=== PATIENT | female | born 1945 | race African-American/Black ===

== ENCOUNTER 2023-12-28 16:00 | Emergency (ER) | payer MEDICARE, OTHER ==
[~2023-12-28] VITALS: Ht 165.1 cm; Wt 65.0 kg
[~2023-12-28 16:00] MED LIST: AMLO1TAB23 PO
[2023-12-28 18:09] LABS: Basophils # (auto) 0.1 10 ^3/uL (0-0.2); Basophils % (auto) 1.4 % (0.0-2.0); Eosinophils # (auto) 0.1 10 ^3/uL (0-0.8); Eosinophils % (auto) 2.3 % (0.0-7.0); Hematocrit 41.8 % (36.0-46.0); Hemoglobin 13.9 g/dL (12.2-16.2); Lymphocytes # (auto) 1.9 10 ^3/uL (0.4-5.4); Lymphocytes % (auto) 30.3 % (10.0-50.0); Mean Corpuscular Hemoglobin 28.3 pg (28.0-32.0); Mean Corpuscular Hgb Conc. 33.4 g/dL (32.0-36.0); Mean Corpuscular Volume 84.7 fL (80.0-100.0); Monocytes # (auto) 0.4 10 ^3/uL (0-1.3); Monocytes % (auto) 6.1 % (0.0-12.0); Neutrophils # (auto) 3.7 10 ^3/uL (1.6-8.6); Neutrophils % (auto) 59.9 % (37.0-80.0); Nucleated Red Blood Cells % 0.2 %; Platelet Count (auto) 237 10^3/uL (140-450); Red Blood Cells 4.93 10^6/uL (4.0-5.20); Red Cell Distribution Width 14.3 % (11.8-14.3); White Blood Cell 6.1 10^3/uL (4.4-10.8)
[2023-12-28 18:23] LABS: INR 1.05 (0.9-1.15); Partial Thromboplastin Time 25.9 SEC (24.5-34.5); Prothrombin Time 11.1 sec (9.3-11.8)
[2023-12-28 18:58] LABS: Alanine Aminotransferase 12 U/L (7-40); Albumin 4.6 g/dL (3.2-4.8); Alkaline Phosphatase 82 U/L (46-116); Anion Gap 7 (5-15); Aspartate Aminotransferase 15 U/L (13-40); BUN/Creatinine Ratio 14.3 (10.0-20.0); Bilirubin, Total 0.5 mg/dL (0.2-1.0); Blood Urea Nitrogen 15 mg/dL (9-23); Calcium 11.3 mg/dL (8.7-10.4); Carbon Dioxide 30 mmol/L (20-31); Chloride 107 mmol/L (98-107); Glucose 108 mg/dL (74-106); Sodium 144 mmol/L (136-145); Total Protein 7.4 g/dL (5.7-8.2)
[2023-12-28] MEDS: NITROGLYCERIN 0.4 MG SL TAB SL ONE (20:27)
[2023-12-28 20:29] VITALS: PULSE 74; RESP 16; O2SAT 95
[2023-12-28 20:38] VITALS: BP 116/55; PULSE 99; RESP 16; O2SAT 96
[2023-12-28] MEDS: HYDROcodone-ACET 5/325MG TAB ONE (20:42)
[2023-12-28] MEDS: HYDROcodone-ACET 5/325MG TAB PO ONE (20:45)
[2023-12-29] MEDS ORDERED: HYDR25TA5 PO (17:33)
[2023-12-29] MEDS ORDERED: LISI10TA34 PO (17:33)
== END 2023-12-28 21:43 | disposition home or self-care (01) ==
LOC: ER 16:00
DX: I10 Essential (primary) hypertension (principal); E78.5 Hyperlipidemia, unspecified; F03.90 Unspecified dementia, unspecified severity, without behavioral disturbance, psychotic disturbance, mood disturbance, and anxiety; R51.9 Headache, unspecified; Z85.3 Personal history of malignant neoplasm of breast; Z79.01 Long term (current) use of anticoagulants
CPT/HCPCS: 36415; 70450; 80053; 83880; 84484; 85025; 85610; 85730; 93005

== ENCOUNTER 2023-12-29 14:18 | Inpatient (IN) | payer OTHER ==
[~2023-12-29] VITALS: Ht 165.1 cm; Wt 67.5 kg
[2023-12-29] MEDS: cloNIDine HCL 0.1 MG TAB PO ONE (15:22)
[2023-12-29] MEDS ORDERED: MORPHINE SULFATE INJ 2 MG/ml SYRG IV PRN (17:30)
[2023-12-29] MEDS ORDERED: HYDROcodone-ACET 5/325MG TAB PO PRN (17:30)
[2023-12-29] MEDS ORDERED: ONDANSETRON HCL 4 MG/2 ML VIAL IV PRN (17:30)
[2023-12-29] MEDS ORDERED: LISI10TA34 PO (17:33)
[2023-12-29] MEDS ORDERED: HYDR25TA5 PO (17:33)
[2023-12-29] MEDS ORDERED: hydrALAZINE HCL 20 MG/ML VL IV PRN (17:45)
[2023-12-29 17:55] LABS: Basophils # (auto) 0.1 10 ^3/uL (0-0.2); Eosinophils # (auto) 0.1 10 ^3/uL (0-0.8); Eosinophils % (auto) 1.9 % (0.0-7.0); Hematocrit 40.4 % (36.0-46.0); Hemoglobin 13.3 g/dL (12.2-16.2); Lymphocytes # (auto) 1.9 10 ^3/uL (0.4-5.4); Lymphocytes % (auto) 31.6 % (10.0-50.0); Mean Corpuscular Hemoglobin 27.9 pg (28.0-32.0); Mean Corpuscular Volume 84.3 fL (80.0-100.0); Monocytes # (auto) 0.5 10 ^3/uL (0-1.3); Monocytes % (auto) 7.6 % (0.0-12.0); Neutrophils # (auto) 3.5 10 ^3/uL (1.6-8.6); Neutrophils % (auto) 57.9 % (37.0-80.0); Nucleated Red Blood Cells % 0.2 %; Platelet Count (auto) 222 10^3/uL (140-450); Red Blood Cells 4.79 10^6/uL (4.0-5.20); Red Cell Distribution Width 14.1 % (11.8-14.3)
[2023-12-29 18:07] LABS: Chloride 106 mmol/L (98-107); Potassium 3.8 mmol/L (3.5-5.1); Sodium 142 mmol/L (136-145)
[2023-12-29 18:08] LABS: Anion Gap 6 (5-15); Carbon Dioxide 30 mmol/L (20-31)
[2023-12-29 18:09] LABS: Calcium 11.2 mg/dL (8.7-10.4)
[2023-12-29 18:13] LABS: BUN/Creatinine Ratio 14.2 (10.0-20.0); Blood Urea Nitrogen 16 mg/dL (9-23); Glucose 116 mg/dL (74-106)
[2023-12-29 18:55] VITALS: O2SAT 97
[2023-12-29 19:23] VITALS: PULSE 83; RESP 13; O2SAT 97
[2023-12-29] MEDS: ACETAMINOPHEN 325 MG TAB PO PRN (20:29)
[2023-12-29 21:50] VITALS: BP 123/72; PULSE 63; RESP 20; RESP 22; TEMP 98; O2SAT 100
[2023-12-30] VITALS (8 sets, daily range): BP systolic 119–158; BP diastolic 62–78; PULSE 54–85; RESP 16–22; TEMP 97.7–98.1; O2SAT 95–99
[2023-12-30] MEDS: MELATONIN 5 MG TAB PO PRN
[2023-12-30] MEDS ORDERED: TIMO0.5S28 EACHEYE ×2 (00:42→16:06)
[2023-12-30] MEDS ORDERED: CHOL400C7 PO (00:42)
[2023-12-30] MEDS: hydroCHLOROthiazide 25 MG TAB PO SCH (09:49)
[2023-12-30] MEDS ORDERED: LISINOPRIL 5 MG TAB PO SCH (10:00)
[2023-12-30] MEDS ORDERED: LISINOPRIL 20 MG TAB PO SCH (10:33)
[2023-12-30] MEDS: HYDROcodone-ACET 5/325MG TAB PO PRN (11:24)
[2023-12-30] MEDS: LOSARTAN POTASSIUM 50 MG TAB PO ONE (11:26)
[2023-12-30] MEDS ORDERED: PRAV20TA3 PO (16:00)
[2023-12-30] MEDS ORDERED: BRIM0.2S17 EACHEYE (16:06)
[2023-12-30] MEDS ORDERED: LATA0.008 EACHEYE (16:06)
[2023-12-30] MEDS ORDERED: NETA0.02 OP (16:06)
[2023-12-30] MEDS: LATANOPROST 0.005 % OPTH(EYE) SOL 2.5ML EACHEYE SCH (16:15)
[2023-12-30] MEDS: amLODIPine BESYLATE 5 MG TAB PO SCH (20:35)
[2023-12-30] MEDS: PRAVASTATIN SODIUM 20 MG TAB PO SCH (21:57)
[2023-12-30] MEDS: TIMOLOL MAL 0.5% OPTH(EYE) SOL 5ML EACHEYE SCH (21:58)
[2023-12-30] MEDS: BRIMONIDINE 0.2% OPTH Soln 5ml EACHEYE SCH (22:06)
[2023-12-30] MEDS: EYE EACHEYE SCH (22:11)
[2023-12-30] MEDS: RHOPRESSA 0.02% EACHEYE SCH (22:11)
[2023-12-31] VITALS (8 sets, daily range): BP systolic 114–131; BP diastolic 72–90; PULSE 66–157; RESP 16–20; TEMP 97.4–98.3; O2SAT 94–97
[2023-12-31 05:52] LABS: Basophils # (auto) 0.1 10 ^3/uL (0-0.2); Basophils % (auto) 1.1 % (0.0-2.0); Eosinophils # (auto) 0.1 10 ^3/uL (0-0.8); Eosinophils % (auto) 2.9 % (0.0-7.0); Hematocrit 39.8 % (36.0-46.0); Hemoglobin 13.8 g/dL (12.2-16.2); Lymphocytes % (auto) 38.2 % (10.0-50.0); Mean Corpuscular Hemoglobin 29.1 pg (28.0-32.0); Mean Corpuscular Hgb Conc. 34.8 g/dL (32.0-36.0); Mean Corpuscular Volume 83.8 fL (80.0-100.0); Monocytes # (auto) 0.4 10 ^3/uL (0-1.3); Monocytes % (auto) 7.4 % (0.0-12.0); Neutrophils # (auto) 2.6 10 ^3/uL (1.6-8.6); Neutrophils % (auto) 50.4 % (37.0-80.0); Nucleated Red Blood Cells % 0.1 %; Platelet Count (auto) 216 10^3/uL (140-450); Red Blood Cells 4.75 10^6/uL (4.0-5.20); Red Cell Distribution Width 14.1 % (11.8-14.3); White Blood Cell 5.1 10^3/uL (4.4-10.8)
[2023-12-31 06:09] LABS: Albumin 4.4 g/dL (3.2-4.8); Alkaline Phosphatase 68 U/L (46-116); Anion Gap 5 (5-15); Aspartate Aminotransferase 12 U/L (13-40); BUN/Creatinine Ratio 13.3 (10.0-20.0); Bilirubin, Total 0.7 mg/dL (0.2-1.0); Blood Urea Nitrogen 13 mg/dL (9-23); Carbon Dioxide 28 mmol/L (20-31); Chloride 106 mmol/L (98-107); Glucose 94 mg/dL (74-106); Potassium 3.1 mmol/L (3.5-5.1); Sodium 139 mmol/L (136-145); Total Protein 7.1 g/dL (5.7-8.2)
[2023-12-31 06:30] LABS: Alanine Aminotransferase < 9 U/L (7-40)
[2023-12-31] MEDS: LOSARTAN POTASSIUM 50 MG TAB PO SCH (09:23)
[2023-12-31] MEDS: DOCUSATE SOD 100 MG CAP PO PRN (13:40)
[2023-12-31] MEDS: POTASSIUM EFFERVESENT TAB 25 MEQ PO ONE (13:44)
[2024-01-01 01:00] VITALS: BP 127/82; PULSE 110; RESP 18; TEMP 97.6; O2SAT 94
[2024-01-01 05:00] VITALS: BP 102/60; PULSE 66; RESP 18; TEMP 97.9; O2SAT 94
[2024-01-01 06:37] LABS: Anion Gap 9 (5-15); Carbon Dioxide 28 mmol/L (20-31); Chloride 103 mmol/L (98-107); Potassium 3.6 mmol/L (3.5-5.1); Sodium 140 mmol/L (136-145)
[2024-01-01 06:38] LABS: Calcium 10.4 mg/dL (8.7-10.4)
[2024-01-01 06:43] LABS: BUN/Creatinine Ratio 16.8 (10.0-20.0); Blood Urea Nitrogen 21 mg/dL (9-23); Glucose 112 mg/dL (74-106)
[2024-01-01 06:44] LABS: Magnesium 2.2 mg/dL (1.6-2.6)
[2024-01-01 08:00] VITALS: PULSE 64
[2024-01-01 09:00] VITALS: BP 113/61; PULSE 68; RESP 16; TEMP 98; O2SAT 97
[2024-01-01] MEDS ORDERED: LOSA-534 PO (11:48)
[2024-01-01] MEDS ORDERED: HYDR25TA5 PO (11:48)
[2024-01-01 13:00] VITALS: BP 100/62; PULSE 64; RESP 17; TEMP 97.2; O2SAT 95
== END 2024-01-01 14:35 | disposition home or self-care (01) | DRG 304 ==
LOC: ER 14:18 → OVERFLOW 17:29 → WEST WING 21:50 → TELE-WESTW 12-30 15:13
PROVIDERS: ADMIT Registered Nurse General Practice; ATTEND Internal Medicine
DX: I16.1 Hypertensive emergency (principal); N17.0 Acute kidney failure with tubular necrosis; I50.32 Chronic diastolic (congestive) heart failure; I24.9 Acute ischemic heart disease, unspecified; E78.5 Hyperlipidemia, unspecified; F03.90 Unspecified dementia, unspecified severity, without behavioral disturbance, psychotic disturbance, mood disturbance, and anxiety; E83.52 Hypercalcemia; E87.6 Hypokalemia; I11.0 Hypertensive heart disease with heart failure; Z85.3 Personal history of malignant neoplasm of breast
CPT/HCPCS: 36415; 70551; 80048; 80053; 83735; 84484; 85025; 87081; 93005; 93306; 99291; G0378

== ENCOUNTER → 2024-03-15 | Outpatient (CLI) | payer OTHER ==
[~2024-03-15] MED LIST changes: +BRIM0.2S17 EACHEYE; +CHOL400C7 PO; +HYDR25TA5 PO; +LATA0.008 EACHEYE; +LOSA-534 PO; +NETA0.02 OP; +PRAV20TA3 PO; +TIMO0.5S28 EACHEYE
[2024-03-15 14:10] LABS: Urine Bacteria FEW /hpf (None Seen); Urine Blood Negative /uL (Negative); Urine Protein, UAD Negative (Negative); Urine Specific Gravity 1.005 (1.001-1.035); Urine Squamous Epithelial Cell FEW /hpf (<5); Urine Urobilinogen Normal (Negative); Urine WBC 13 /hpf (0 - 5); Urine pH 6.5 (5.0-9.0)
[2024-03-15 14:15] LABS: Urine Clarity Hazy (Clear); Urine Color Light-Yellow (Yellow)
== END | disposition home or self-care (01) ==
LOC: LAB 13:16
PROVIDERS: ATTEND Urology
DX: R31.9 Hematuria, unspecified (principal)
CPT/HCPCS: 81001; 87086

== ENCOUNTER 2024-04-10 17:17 | Emergency (ER) | payer OTHER ==
[~2024-04-10] VITALS: Ht 170.2 cm; Wt 64.5 kg
[2024-04-10] MEDS: NITROGLYCERIN 0.4 MG SL TAB SL ONE (17:59)
--- NOTE | 2024-04-10 18:11 | ED.PDOC ---
HPI Comments HPI: POOR HISTORIAN. HPI: 79 y/o F, with PMHX of HTN presents to the ED for CC of hypertension. PATIENT CHECKS HER BLOOD PRESSURE ROUTINELY TWICE A DAY. First set of blood pressure was 150 or 160 systolic daily. Patient has checked it again shortly after. patient's blood pressure at home said to be in the 200s. Patient's blood pressure in triage ranged from 150's-160's. Patient comments on taking losartan as of x1day ago. Patient denies social history. Patient denies chest pain, shortness of breath, or N/V/D. No other symptoms or modifying factors at this time. Patient is not on blood thinners. Initial Vital Signs: Temp: 98.0 BP:150/105 HR:120 RR:17 SpO2: 98% Past Medical History: HTN, HLD, BREAST CANCER Past Surgical History: MASTECTOMY Social History: Denies smoking, ETOH, or drug use. Medications: LOSARTAN REVIEW OF SYSTEMS: CONSTITUTIONAL: DENIES ACUTE: FEVER, DIAPHORESIS, CHILLS, GENERALIZED WEAKNESS. HEAD: DENIES ACUTE: HEADACHE, PHOTOPHOBIA EYES: DENIES ACUTE: DOUBLE VISION, VISION LOSS, EYE PAIN, EYE DISCHARGE. EARS: DENIES ACUTE: TINNITUS, HEARING LOSS, EAR DISCHARGE, EAR PAIN, THROAT: DENIES ACUTE: SORE THROAT, SWELLING, DIFFICULTY SWALLOWING , PAIN WITH SWALLOWING, CHANGE IN VOICE. NECK: DENIES ACUTE: NECK PAIN, NECK SWELLING, STIFF NECK. HEART: DENIES ACUTE : CHEST PAIN, PALPITATIONS, LUNGS: DENIES ACUTE: SOB, WHEEZING, COUGH, HEMOPTYSIS ABDOMEN: DENIES ACUTE: ABDOMINAL PAIN, NAUSEA, VOMITING, DIARRHEA, MELENA , HEMATEMESIS, HEMATOCHEZIA SKIN: DENIES ACUTE: RASH, REDNESS, LESIONS, ITCHINESS. EXTREMITIES: DENIES ACUTE: CALF PAIN, NUMBNESS, TINGLING, WEAKNESS, DENIES PAIN IN EXTREMITY. DENIES ACUTE: LOW BACK PAIN. NEURO: DENIES ACUTE: FOCAL NEUROLOGICAL DEFICIT, MOTOR OR SENSORY FOCAL NEUROLOGICAL DEFICIT, TREMORS, SEIZURE LIKE ACTIVITY, CONFUSION, DIZZINESS, CHANGE IN MENTAL STATUS, LOSS OF BOWEL OR BLADDER FUNCTION, CAUDA EQUINA LIKE SYMPTOMS. : DENIES ACUTE: DYSURIA, HEMATURIA, FLANK PAIN, INCREASE IN URINARY FREQUENCY. PSYCH: DENIES ACUTE: HALLUCINATION, SUICIDAL IDEATION, HOMICIDAL IDEATION. FEMALE: DENIES ACUTE: ABNORMAL VAGINAL BLEEDING, FOUL ODOR, UNUSUAL DISCHARGE. PHYSICAL EXAM: GENERAL: NO ACUTE DISTRESS, AWAKE AND ALERT. HEAD: NORMOCEPHALIC, ATRAUMATIC. NECK: SUPPLE, TRACHEA IS MIDLINE, NO SWELLING. THROAT: NORMAL PHONATION. EYES:, NO ERYTHEMA, NO PURULENT DISCHARGE, NO PROPTOSIS, NO ICTERUS. HEART: REGULAR RATE, REGULAR RHYTHM, NO SIGNIFICANT MURMUR APPRECIATED. LUNGS: NO APPARENT RESPIRATORY DISTRESS, ABLE TO SPEAK IN FULL SENTENCES. NO WHEEZING, NO RHONCHI, NO CRACKLES. NO STRIDORS CLEAR TO AUSCULTATION BILATERALLY. ABDOMEN: NON TENDER TO PALPATION, NON DISTENDED, SOFT, NO GUARDING, NO REBOUND, + BOWEL SOUNDS. NEURO: AWAKE, ALERT, ORIENTED TO NAME, SELF, SITUATION, FOLLOWS COMMANDS GCS=15. SPEECH IS NORMAL. SKIN: NO PETECHIA, NO PURPURA, NO CYANOSIS, NON-PALE, NOT JAUNDICE. LOWER EXTREMITIES: --NO - PITTING EDEMA NO DEFORMITY, NO FOCAL SWELLING, NO CALF TTP. MAKES EYE CONTACT. MOVES ALL FOUR EXTREMITIES. FACE: NO APPARENT FACIAL DROOP. AMBULATING IN THE ED INDEPENDENTLY. Chief Complaint: High Blood Pressure Time Seen by MD: 17:50 Primary Care Provider: pt does not know Reviewed Notes: Nurses Notes, Medications, Allergies Allergies: Coded Allergies: NO KNOWN ALLERGIES (Unverified , 08/07/10) Home Meds Active Scripts Losartan Potassium (Losartan Potassium) 50 Mg Tab, 50 MG PO BID for 90 Days, #180 TAB 1 Refill Prov:TIGRE HERCULES MD 01/01/24 Hctz (Hydrochlorothiazide) 25 Mg Tab, 25 MG PO DAILY for 90 Days, #90 TAB 1 Refill Prov:TIGRE HERCULES MD 01/01/24 Reported Medications Latanoprost (LATANOPROST) 0.005 % Yue, 1 DROP EACHEYE DAILYP, #7.5 ML 3 Refills 12/30/23 Brimonidine Tartrate (Brimonidine Tartrate) 0.2 % Yue, 1 DROP EACHEYE BID, #10 ML 3 Refills 12/30/23 Netarsudil Dimesylate (Rhopressa) 0.02 % Yue, 0.02 % OP QPM, ML 12/30/23 Timolol Maleate (Timolol Maleate Ophthalmi) 0.5 % Yue, 1 DROP EACHEYE QPM, #15 ML 3 Refills 12/30/23 Pravastatin Sodium (PRAVACHOL TABLET) 20 Mg Tb, 1 TAB PO QPM, #90 TAB 1 Refill 12/30/23 Cholecalciferol (Vitamin D) 400 Unit Cap, 400 UNIT PO, CAP 12/30/23 Amlodipine Besylate (Amlodipine Besylate) 10 Mg Tab, 10 MG PO DAILY, TAB 01/14/14 Information Source: Patient Mode of Arrival: Ambulatory Severity: Mild Timing: Days Prehospital treatment: None Onset: At Rest Cardiac Risk Factors: HTN PE Risk Factors: None Modifying Factors: Nothing Associated Signs and Symptoms: None Was a procedure done? Was a procedure done?: No CP Differential Dx Differential Diagnosis: N/A Differential Diagnosis: HTN Essential, HTN Accelerated, Other (DDX include renal disease, thyroid disease, electrolyte abnormality, increased salt intake, medications non-compliance, undiagnosed HTN, Hypertensive crisis, hypertensive urgency., drug toxicity.) X-Ray, Labs, Meds, VS Vital Signs Date Time Temp Pulse Resp B/P (MAP) Pulse Ox O2 Delivery O2 Flow Rate FiO2 04/11/24 01:54 98.2 99 16 148/82 (104) 98 98.2 04/11/24 01:54 99 16 98 Room Air 04/11/24 01:20 98 Room Air* 0 21 04/11/24 01:20 129/79 04/11/24 01:20 98.0 120 17 150/105 (120) 98 98.0 04/10/24 20:06 100 04/10/24 17:59 156/103 04/10/24 17:35 98.0 120 17 160/88 (112) 98 Lab Test 04/10/24 19:30 04/10/24 18:32 Range/Units Troponin I High Sensitivity 8 8 </=34 ng/L White Blood Count 5.4 4.4-10.8 10^3/uL Red Blood Count 4.67 4.0-5.20 10^6/uL Hemoglobin 13.3 12.2-16.2 g/dL Hematocrit 39.0 36.0-46.0 % Mean Corpuscular Volume 83.5 80.0-100.0 fL Mean Corpuscular Hemoglobin 28.6 28.0-32.0 pg Mean Corpuscular Hemoglobin Concent 34.2 32.0-36.0 g/dL Red Cell Distribution Width 14.4 H 11.8-14.3 % Platelet Count 251 140-450 10^3/uL Mean Platelet Volume 8.6 6.9-10.8 fL Neutrophils (%) (Auto) 56.4 37.0-80.0 % Lymphocytes (%) (Auto) 32.8 10.0-50.0 % Monocytes (%) (Auto) 5.6 0.0-12.0 % Eosinophils (%) (Auto) 3.0 0.0-7.0 % Basophils (%) (Auto) 2.2 H 0.0-2.0 % Neutrophils # (Auto) 3.0 1.6-8.6 10 ^3/uL Lymphocytes # (Auto) 1.8 0.4-5.4 10 ^3/uL Monocytes # (Auto) 0.3 0-1.3 10 ^3/uL Eosinophils # (Auto) 0.2 0-0.8 10 ^3/uL Basophils # (Auto) 0.1 0-0.2 10 ^3/uL Nucleated Red Blood Cells 0.1 % Sodium Level 143 136-145 mmol/L Potassium Level 3.3 L 3.5-5.1 mmol/L Chloride Level 103 98-107 mmol/L Carbon Dioxide Level 30 20-31 mmol/L Anion Gap 10 5-15 Blood Urea Nitrogen 17 9-23 mg/dL Creatinine 1.21 H 0.550-1.02 mg/dL Glomerular Filtration Rate Calc 46 >90 mL/min BUN/Creatinine Ratio 14.0 10.0-20.0 Serum Glucose 123 H 74-106 mg/dL Calcium Level 11.5 H 8.7-10.4 mg/dL Total Bilirubin 0.5 0.2-1.0 mg/dL Aspartate Amino Transferase (AST) 17 13-40 U/L Alanine Aminotransferase (ALT) 13 7-40 U/L Alkaline Phosphatase 92 46-116 U/L Total Protein 7.8 5.7-8.2 g/dL Albumin 4.9 H 3.2-4.8 g/dL [facility] [id number] [place] [address] Ph: [phone] DIAGNOSTIC IMAGING Diagnostic Imaging Report : [id number] Signed PATIENT: LUPILLO RASHEED Narinder ACCT: [id number] UNIT: [id number] : 1945 LOC: ER ROOM / BED: / AGE / SEX: 79 / F ADM STATUS: REG ER SERVICE 41 ORDERING PHYSICIAN: GINA CUMMINS DO PROCEDURE(s): CXRP - CHEST PORTABLE REASON: htn ORDER NUMBER(s): [id number], ACCESSION NUMBER(s): [id number] CHEST RADIOGRAPH Indication: htn Technique: Single frontal view of the chest was obtained Comparison: None FINDINGS: Lines and Tubes: None Lungs: No focal consolidation. Pleura: No effusion. No pneumothorax. Cardiomediastinal contours: Unremarkable Bones: No acute osseous abnormality. Surgical clips are noted over the right axilla. IMPRESSION: No acute cardiopulmonary disease. ATED BY: ANA LAURA GARCIA DO DICTATED DATE/TIME: 04/10/241824 SIGNED BY: ANA LAURA GARCIA DO SIGNED DATE/TIME: 04/10/241824 CC: [place] [address] Ph: [phone] DIAGNOSTIC IMAGING Diagnostic Imaging Report : [id number] Signed PATIENT: LUPILLO RASHEED ACCT: [id number] UNIT: [id number] : 1945 LOC: ER ROOM / BED: / AGE / SEX: 79 / F ADM STATUS: REG ER SERVICE 41 ORDERING PHYSICIAN: GINA CUMMINS DO PROCEDURE(s): HWOCT - HEAD WITHOUT CONTRAST REASON: htn ORDER NUMBER(s): [id number], ACCESSION NUMBER(s): [id number] Procedure: CT HEAD WITHOUT CONTRAST Study Date and Requested Time: 04/10/2024 06:04 PM History: htn Comparison: CT HEAD WITHOUT CONTRAST on DOS: 12/28/23 Dose: CTDI: 50.77 mGy DLP: 814.01 mGycm Technique: Multiplanar images obtained through the brain without intravenous contrast. Findings: Mild diffuse brain atrophy. Mild chronic small vessel ischemic changes. No hemorrhages, masses, mass effect, midline shift, herniation or cytotoxic edema following a large vascular territory. No intra-axial or extra-axial fluid collections. No evidence of hydrocephalus. The basal cisterns are patent. Bilateral basal ganglia physiologic calcification. The pituitary gland, sella and parasellar regions are unremarkable. The cerebellar tonsils are in normal position. The cerebellum is unremarkable. The orbits and globes are unremarkable. The paranasal sinuses and mastoids are clear. There are no worrisome calvarial lesions. Impression: No evidence of acute intracranial abnormality. ATED BY: ANA LAURA GARCIA DO DICTATED DATE/TIME: 04/10/241839 SIGNED BY: ANA LAURA GARCIA DO SIGNED DATE/TIME: 04/10/241839 CC: Time of 1ST Reevaluation: 18:20 Reevaluation 1ST: Unchanged Time of 2ND Reevaluation: 00:00 Reevaluation 2ND: Resolved Patient Education/Counseling: Diagnosis, Treatment Family Education/Counseling: No Family Present Comments Patient presented with the above HPI. xxHIGH BLOOD PRESSURExx workup was initiated. patient was found with the above mentioned diagnosis. the following medications were ordered: NITROGLYCERIN the following tests were ordered: LABS, CXR, CT, EKGX3 Patient ED course and VS have been stabilized. Patient has been reassessed in the ED and remained in a stable condition. Pertinent incidental findings were discussed with the patient and/or family. Patient/family voices understanding and is agreeable with plan. Patient has been observed in the ED adequate length of time to insure improvement/stability. Escalation of care considered: Consideration of escalation to observation or admission Patient was DISCHARGED home in a stable condition Departure 1 Departure Time of Disposition: 01:33 Impression: Primary Impression: Hypertensive crisis Disposition: 01 HOME / SELF CARE / HOMELESS Condition: Stable Additional Instructions: Additional discharge instructions: You MUST follow-up with your primary care/family doctor in 1 to 2 days. If you are unable to see your primary care/family doctor, please return to our emergency room for re-assessment and re-evaluation in 1 to 2 days. Return to the emergency room here in our facility or to the nearest ER [facility] if your symptoms change or worsen. CONSULTATIONS: you MUST Follow-up for consultation as soon as possible with: -cardiology in 1-2 days. Please call for appointment. You MUST call the consultants office yourself to make an appointment. You may need to arrange that through your insurance and/or your primary/family doctor. If you are unable to see the systems management consultant in 1 to 2 days, you must return to our emergency room (or any other ER of your choice) for re-assessment and re- evaluation. Adequate fluid hydration. Monitoring blood pressure at home at least 3 times a day. Below is a copy of your radiological report for follow up: [place] [address] Ph: [phone] DIAGNOSTIC IMAGING Diagnostic Imaging Report : [id number] Signed PATIENT: LUPILLO RASHEED ACCT: [id number] UNIT: [id number] : 1945 LOC: ER ROOM / BED: / AGE / SEX: 79 / F ADM STATUS: REG ER SERVICE 41 ORDERING PHYSICIAN: GNIA CUMMINS DO PROCEDURE(s): CXRP - CHEST PORTABLE REASON: htn ORDER NUMBER(s): [id number], ACCESSION NUMBER(s): [id number] CHEST RADIOGRAPH Indication: htn Technique: Single frontal view of the chest was obtained Comparison: None FINDINGS: Lines and Tubes: None Lungs: No focal consolidation. Pleura: No effusion. No pneumothorax. Cardiomediastinal contours: Unremarkable Bones: No acute osseous abnormality. Surgical clips are noted over the right axilla. IMPRESSION: No acute cardiopulmonary disease. ATED BY: ANA LAURA GARCIA DO DICTATED DATE/TIME: 04/10/241824 SIGNED BY: ANA LAURA GARCIA DO SIGNED DATE/TIME: 04/10/241824 CC: [place] [address] Ph: [phone] DIAGNOSTIC IMAGING Diagnostic Imaging Report : [id number] Signed PATIENT: LUPILLO RASHEED ACCT: [id number] UNIT: [id number] : 1945 LOC: ER ROOM / BED: / AGE / SEX: 79 / F ADM STATUS: REG ER SERVICE 41 ORDERING PHYSICIAN: GINA CUMMINS DO PROCEDURE(s): HWOCT - HEAD WITHOUT CONTRAST REASON: htn ORDER NUMBER(s): [id number], ACCESSION NUMBER(s): [id number] Procedure: CT HEAD WITHOUT CONTRAST Study Date and Requested Time: 04/10/2024 06:04 PM History: htn Comparison: CT HEAD WITHOUT CONTRAST on DOS: 12/28/23 Dose: CTDI: 50.77 mGy DLP: 814.01 mGycm Technique: Multiplanar images obtained through the brain without intravenous contrast. Findings: Mild diffuse brain atrophy. Mild chronic small vessel ischemic changes. No hemorrhages, masses, mass effect, midline shift, herniation or cytotoxic edema following a large vascular territory. No intra-axial or extra-axial fluid collections. No evidence of hydrocephalus. The basal cisterns are patent. Bilateral basal ganglia physiologic calcification. The pituitary gland, sella and parasellar regions are unremarkable. The cerebellar tonsils are in normal position. The cerebellum is unremarkable. The orbits and globes are unremarkable. The paranasal sinuses and mastoids are clear. There are no worrisome calvarial lesions. Impression: No evidence of acute intracranial abnormality. ATED BY: ANA LAURA GARCIA DO DICTATED DATE/TIME: 04/10/241839 SIGNED BY: ANA LAURA GARCIA DO SIGNED DATE/TIME: 04/10/241839 CC: Discharged With: Self Critical Care Note Critical Care Time?: No Heart Score Heart Score: Heart Score Response (Comments) Value History N/A 0 EKG N/A 0 Age N/A 0 Risk Factors N/A 0 Troponin N/A 0 Total 0 I personally scribed for GINA CUMMINS DO ([email or web address]) on 04/10/24 at 18:11. Electronically submitted by Nadia Rodriguez ([email or web address]). I personally scribed for GINA CUMMINS DO ([email or web address]) on 04/10/24 at 18:31. Electronically submitted by Nadia Rodriguez ([email or web address]). I personally scribed for GINA CUMMINS DO ([email or web address]) on 04/10/24 at 18:43. Electronically submitted by Nadia Rodriguez ([email or web address]). I personally scribed for GINA CUMMINS DO ([email or web address]) on 04/10/24 at 18:45. Electronically submitted by Nadia Rodriguez ([email or web address]). GINA CUMMINS DO Apr 10, 2024 18:11
--- NOTE | 2024-04-10 18:27 | DVH ---
CHEST RADIOGRAPH Indication: htn Technique: Single frontal view of the chest was obtained Comparison: None FINDINGS: Lines and Tubes: None Lungs: No focal consolidation. Pleura: No effusion. No pneumothorax. Cardiomediastinal contours: Unremarkable Bones: No acute osseous abnormality. Surgical clips are noted over the right axilla. IMPRESSION: No acute cardiopulmonary disease.
--- NOTE | 2024-04-10 18:42 | DVH ---
Procedure: CT HEAD WITHOUT CONTRAST Study Date and Requested Time: 04/10/2024 06:04 PM History: htn Comparison: CT HEAD WITHOUT CONTRAST on DOS: 12/28/23 Dose: CTDI: 50.77 mGy DLP: 814.01 mGycm Technique: Multiplanar images obtained through the brain without intravenous contrast. Findings: Mild diffuse brain atrophy. Mild chronic small vessel ischemic changes. No hemorrhages, masses, mass effect, midline shift, herniation or cytotoxic edema following a large v ascular territory. No intra-axial or extra-axial fluid collections. No evidence of hydrocephalus. The basal cisterns are patent. Bilateral basal ganglia physiologic calcification. The pituitary gland, sella and parasellar regions are unremarkable. The cerebellar tonsils are in nor mal position. The cerebellum is unremarkable. The orbits and globes are unremarkable. The paranasal sinuses and mastoids are clear. There are no wo rrisome calvarial lesions. Impression: No evidence of acute intracranial abnormality.
[2024-04-10 19:00] LABS: Basophils # (auto) 0.1 10 ^3/uL (0-0.2); Basophils % (auto) 2.2 % (0.0-2.0); Eosinophils # (auto) 0.2 10 ^3/uL (0-0.8); Hemoglobin 13.3 g/dL (12.2-16.2); Lymphocytes # (auto) 1.8 10 ^3/uL (0.4-5.4); Lymphocytes % (auto) 32.8 % (10.0-50.0); Mean Corpuscular Hemoglobin 28.6 pg (28.0-32.0); Mean Corpuscular Hgb Conc. 34.2 g/dL (32.0-36.0); Mean Corpuscular Volume 83.5 fL (80.0-100.0); Monocytes # (auto) 0.3 10 ^3/uL (0-1.3); Monocytes % (auto) 5.6 % (0.0-12.0); Neutrophils % (auto) 56.4 % (37.0-80.0); Nucleated Red Blood Cells % 0.1 %; Platelet Count (auto) 251 10^3/uL (140-450); Red Blood Cells 4.67 10^6/uL (4.0-5.20); Red Cell Distribution Width 14.4 % (11.8-14.3); White Blood Cell 5.4 10^3/uL (4.4-10.8)
[2024-04-10 19:11] LABS: Alanine Aminotransferase 13 U/L (7-40); Alkaline Phosphatase 92 U/L (46-116); Anion Gap 10 (5-15); Aspartate Aminotransferase 17 U/L (13-40); Blood Urea Nitrogen 17 mg/dL (9-23); Carbon Dioxide 30 mmol/L (20-31); Chloride 103 mmol/L (98-107); Sodium 143 mmol/L (136-145)
[2024-04-10 19:12] LABS: Bilirubin, Total 0.5 mg/dL (0.2-1.0); Total Protein 7.8 g/dL (5.7-8.2)
[2024-04-10 19:21] LABS: Albumin 4.9 g/dL (3.2-4.8); Calcium 11.5 mg/dL (8.7-10.4); Glucose 123 mg/dL (74-106); Potassium 3.3 mmol/L (3.5-5.1)
--- NOTE | 2024-04-10 20:46 | ECG ---
[facility] Test Date: 2024-04-10 Test Time: 20:06:04 Pat Name: LUPILLO RASHEED Department: ER Room: Gender: F [employer]: IC : 1945 Requested By: GINA CUMMINS Order Number: [id number] Reading MD: Vj Adams Measurements Intervals [place] Rate: 105 P: 52 RI: 186 QRS: -11 QRSD: 90 T: 10 QT: 334 QTc: 442 Interpretive Statements Sinus tachycardia Probable left atrial enlargement Low voltage, precordial leads Left ventricular hypertrophy Nonspecific T abnormalities, anterior leads Electronically Signed On 04-11-2024 13:28:04 PST by Vj Adams Please click the below link to view image of tracing.
[2024-04-11 01:20] VITALS: O2SAT 98
[2024-04-11 01:54] VITALS: BP 148/82; PULSE 99; RESP 16; TEMP 98.2; O2SAT 98
== END 2024-04-11 01:56 | disposition home or self-care (01) ==
LOC: ER 17:28
DX: I16.9 Hypertensive crisis, unspecified (principal); E78.5 Hyperlipidemia, unspecified; Z79.899 Other long term (current) drug therapy; Z85.3 Personal history of malignant neoplasm of breast
CPT/HCPCS: 36415; 70450; 71045; 80053; 84484; 85025; 93005